=== PATIENT | female | born 2000 | race African-American/Black ===

== ENCOUNTER 2021-01-10 19:24 | Emergency (ER) | payer OTHER ==
[~2021-01-10] VITALS: Ht 167.6 cm; Wt 139.3 kg
[2021-01-10 23:58] VITALS: BP 122/65
== END 2021-01-11 00:17 | disposition home or self-care (01) ==
LOC: ER 19:29
DX: F42.8 Other obsessive-compulsive disorder (principal); L97.111 Non-pressure chronic ulcer of right thigh limited to breakdown of skin; L98.491 Non-pressure chronic ulcer of skin of other sites limited to breakdown of skin; E66.9 Obesity, unspecified; Z68.42 Body mass index [BMI] 45.0-49.9, adult

== ENCOUNTER 2021-01-26 09:15 | Emergency (ER) | payer OTHER ==
[~2021-01-26] VITALS: Ht 170.2 cm; Wt 127.0 kg
[2021-01-26 09:36] VITALS: BP 127/30
== END 2021-01-26 11:23 | disposition home or self-care (01) ==
LOC: ER 09:15
DX: M54.5 Low back pain (principal); M62.838 Other muscle spasm; N39.0 Urinary tract infection, site not specified
CPT/HCPCS: 72100; 81002; 81025

== ENCOUNTER 2021-03-29 13:37 | Emergency (ER) | payer OTHER ==
[~2021-03-29] VITALS: Ht 157.5 cm; Wt 131.5 kg
[2021-03-29 15:27] VITALS: BP 132/78
== END 2021-03-29 15:47 | disposition home or self-care (01) ==
LOC: ER 13:37
DX: L23.2 Allergic contact dermatitis due to cosmetics (principal); F41.9 Anxiety disorder, unspecified; F32.9 Major depressive disorder, single episode, unspecified; Z87.440 Personal history of urinary (tract) infections

== ENCOUNTER 2022-01-18 20:54 | Emergency (ER) | payer OTHER ==
[~2022-01-18] VITALS: Ht 167.6 cm; Wt 150.6 kg
[2022-01-18 21:38] LABS: Urine Bacteria NONE SEEN /hpf (None Seen); Urine Blood 3+ /uL (Negative); Urine Mucus FEW (None Seen); Urine Specific Gravity 1.028 (1.001-1.035); Urine WBC 10 /hpf (0 - 5)
[2022-01-19] MEDS ORDERED: CIPR500T4 PO (00:15)
[2022-01-19 00:30] VITALS: BP 132/81
== END 2022-01-19 00:32 | disposition home or self-care (01) ==
LOC: ER 20:56
DX: N39.0 Urinary tract infection, site not specified (principal); F41.9 Anxiety disorder, unspecified; F43.0 Acute stress reaction; F32.9 Major depressive disorder, single episode, unspecified; Z91.14 Patient's other noncompliance with medication regimen
CPT/HCPCS: 81001; 87086